=== PATIENT | male | born 1950 | race African-American/Black ===

== ENCOUNTER 2018-02-06 07:34 | Inpatient (IN) | payer MEDICARE, OTHER ==
[~2018-02-06] VITALS: Ht 193 cm; Wt 127.0 kg
[~2018-02-06 07:34] MED LIST: ASPI-1159 PO; ATOR40TA70 PO; ERGO500013 PO; FOLI-43 PO; GABA-533 PO; HYDR-4094 MT; HYDR25TA PO; IBUP-2030 PO; INSU3INS6 SUBCUT; METF-415 PO; METO-539 PO
[2018-02-06] MEDS ORDERED: SODIUM CHLORIDE 0.9% 1,000 ML IV ONE ×2 (08:50→10:00)
[2018-02-06 09:14] LABS: HEMATOCRIT. 30.5 % (42.0-52.0); HEMOGLOBIN. 9.7 g/dL (14.0-18.0); MEAN CORPUSCULAR HEMOGLOBIN 28.7 pg (28.0-32.0); MEAN CORPUSCULAR VOLUME 90.8 fL (80.0-94.0); PLATELET 302 x1000/uL (130-400); RED BLOOD CELL COUNT 3.36 mill/uL (4.7-6.1); RED CELL DISTRIBUTION WIDTH 12.8 % (11.6-14.6)
[2018-02-06 09:19] LABS: CHLORIDE 96 mEq/L (98-107)
[2018-02-06 09:21] LABS: INR 1.1; PROTHROMBIN TIME 10.9 sec (9.1-11.1)
[2018-02-06 09:35] LABS: PLATELET ESTIMATE NORMAL
[2018-02-06] MEDS ORDERED: METRONIDAZOLE 500 MG PREMIX 100 ML IV ONE (10:00)
[2018-02-06] MEDS ORDERED: LEVOFLOXACIN 750MG PREMIX 150 ML IV ONE (10:00)
[2018-02-06 11:56] LABS: CLARITY URINE CLEAR (CLEAR); COLOR URINE DARK YELLOW (YELLOW); KETONES URINE TRACE (NEGATIVE); LEUKOCYTE ESTERASE URINE TRACE (NEGATIVE); NITRITE URINE NEGATIVE (NEGATIVE); OCCULT BLOOD URINE NEGATIVE (NEGATIVE); PH URINE 5.5 (4.5-8.0); PROTEIN URINE 2+ (NEGATIVE); SPECIFIC GRAVITY URINE 1.022 (1.005-1.030)
[2018-02-06] MEDS ORDERED: VANCOMYCIN 1 G PREMIX 200 ML IV ONE (13:15)
[2018-02-06] MEDS ORDERED: INSULIN REGULAR (HUMULIN R) 300UNITS/3ML SUBCUT ONE (14:30)
[2018-02-06] MEDS ORDERED: CLONIDINE 0.1MG TABLET PO NR (20:45)
[2018-02-06] MEDS ORDERED: METOPROLOL TARTRATE 50MG TABLET PO NR (20:45)
[2018-02-06] MEDS ORDERED: METOPROLOL TARTRATE 50MG TABLET PO ONE (20:45)
[2018-02-06] MEDS ORDERED: MORPHINE SULFATE 2 MG/ML CPJ (NOT FOR IM USE) IV PRN ×2 (20:45)
[2018-02-06] MEDS ORDERED: CLONIDINE 0.1MG TABLET PO SCH (20:45)
[2018-02-06 22:00] VITALS: BP 133/60
[2018-02-06] MEDS: SODIUM CHLORIDE 0.9% 1,000 ML IV SCH (22:25)
[2018-02-06] MEDS ORDERED: CLONIDINE 0.1MG TABLET PO PRN (22:30)
[2018-02-06] MEDS ORDERED: METOPROLOL TARTRATE 50MG TABLET PO SCH (23:00)
[2018-02-07] VITALS (12 sets, daily range): BP systolic 125–148; BP diastolic 51–76
[2018-02-07] MEDS: METOPROLOL TARTRATE 50MG TABLET PO SCH ×2 (08:40→20:14)
[2018-02-07] MEDS: SODIUM CHLORIDE 0.9% 1,000 ML IV SCH ×2 (10:05→23:25)
[2018-02-07] MEDS ORDERED: DEXTROSE 50% WATER 50ML SYRINGE IV PRN (11:45)
[2018-02-07 11:52] LABS: HEMATOCRIT. 27.5 % (42.0-52.0); HEMOGLOBIN. 9.1 g/dL (14.0-18.0); MEAN CORPUSCULAR VOLUME 87.9 fL (80.0-94.0); MEAN PLATELET VOLUME 9.6 fl (7.4-10.4); PLATELET 281 x1000/uL (130-400); RED BLOOD CELL COUNT 3.13 mill/uL (4.7-6.1); RED CELL DISTRIBUTION WIDTH 12.9 % (11.6-14.6)
[2018-02-07] MEDS: BLOOD SUGAR DIAGNOSTIC STRIP TEST SCH ×3 (12:30→20:14)
[2018-02-07] MEDS ORDERED: KETOROLAC 30MG/ML VIAL IV NR (12:45)
[2018-02-07] MEDS: INSULIN LISPRO 100 UNITS/ML SUBCUT SCH ×3 (12:53→20:13)
[2018-02-07 12:55] LABS: PLATELET ESTIMATE NORMAL
[2018-02-07] MEDS: LEVOFLOXACIN 500MG PREMIX 100 ML IV SCH (13:10)
[2018-02-07] MEDS ORDERED: VANCOMYCIN 1500MG in DEXTROSE 5% WATER 250ML IV NR (14:30)
[2018-02-07] MEDS: METRONIDAZOLE 500 MG PREMIX 100 ML IV SCH (14:41)
[2018-02-07] MEDS: ENOXAPARIN 30MG/0.3ML SYR SUBCUT SCH (15:11)
[2018-02-07] MEDS: ZINC OXIDE 20% OINT 30GM TOP SCH (17:50)
[2018-02-08] VITALS (8 sets, daily range): BP systolic 134–157; BP diastolic 51–71
[2018-02-08] MEDS: ENOXAPARIN 30MG/0.3ML SYR SUBCUT SCH ×3 (00:18→21:16)
[2018-02-08] MEDS: METRONIDAZOLE 500 MG PREMIX 100 ML IV SCH ×4 (00:19→21:22)
[2018-02-08] MEDS: HYDROMORPHONE HCL/PF 2MG/ML CPJ IV PRN ×2 (04:25→15:37)
[2018-02-08] MEDS: VANCOMYCIN 1250MG in DEXTROSE 5% WATER 250ML IV SCH ×2 (05:45→23:22)
[2018-02-08 05:48] LABS: HEMATOCRIT. 26.5 % (42.0-52.0); HEMOGLOBIN. 8.8 g/dL (14.0-18.0); MEAN CORPUSCULAR HEMOGLOBIN 29.5 pg (28.0-32.0); MEAN CORPUSCULAR VOLUME 88.3 fL (80.0-94.0); MEAN PLATELET VOLUME 10.2 fl (7.4-10.4); PLATELET 291 x1000/uL (130-400)
[2018-02-08 06:34] LABS: CHLORIDE 99 mEq/L (98-107)
[2018-02-08 06:51] LABS: PHOSPHORUS 1.5 mg/dL (2.5-4.9)
[2018-02-08] MEDS: BLOOD SUGAR DIAGNOSTIC STRIP TEST SCH ×4 (07:56→21:16)
[2018-02-08] MEDS ORDERED: SODIUM HYPOCHLORITE 0.125% 473ML SOLUTION TOP SCH (09:00)
[2018-02-08] MEDS ORDERED: ENOXAPARIN 40MG/0.4ML SYR SUBCUT SCH (09:00)
[2018-02-08] MEDS: METOPROLOL TARTRATE 50MG TABLET PO SCH ×2 (09:29→21:16)
[2018-02-08] MEDS: INSULIN LISPRO 100 UNITS/ML SUBCUT SCH ×4 (09:30→21:23)
[2018-02-08] MEDS: ZINC OXIDE 20% OINT 30GM TOP SCH ×2 (09:31→17:00)
[2018-02-08] MEDS ORDERED: POTASSIUM CHLORIDE 20MEQ TABLET SR PO NR (10:00)
[2018-02-08] MEDS ORDERED: MORPHINE SULFATE 4 MG/ML CPJ (NOT FOR IM USE) IV STA (11:24)
[2018-02-08 12:31] LABS: PLATELET ESTIMATE NORMAL
[2018-02-08] MEDS: SODIUM CHLORIDE 0.9% 1,000 ML IV SCH (13:08)
[2018-02-08] MEDS: LEVOFLOXACIN 500MG PREMIX 100 ML IV SCH (13:08)
[2018-02-08] MEDS ORDERED: SODIUM PHOS,M-BASIC-D-BASIC 30 MM in SODIUM CHLORIDE 0.9% 500 ML IV SCH (14:15)
[2018-02-08] MEDS ORDERED: VANCOMYCIN 1250MG in DEXTROSE 5% WATER 250ML IV SCH (14:30)
[2018-02-09] MEDS: SODIUM CHLORIDE 0.9% 1,000 ML IV SCH ×2 (03:54→15:25)
[2018-02-09] MEDS: METRONIDAZOLE 500 MG PREMIX 100 ML IV SCH ×3 (03:54→22:45)
[2018-02-09] MEDS: BLOOD SUGAR DIAGNOSTIC STRIP TEST SCH ×4 (07:30→21:00)
[2018-02-09 07:45] LABS: HEMATOCRIT. 28.6 % (42.0-52.0); HEMOGLOBIN. 9.4 g/dL (14.0-18.0); MEAN CORPUSCULAR VOLUME 88.3 fL (80.0-94.0); MEAN PLATELET VOLUME 10.2 fl (7.4-10.4); PLATELET 320 x1000/uL (130-400); RED BLOOD CELL COUNT 3.24 mill/uL (4.7-6.1); RED CELL DISTRIBUTION WIDTH 12.9 % (11.6-14.6)
[2018-02-09 08:00] VITALS: BP 145/76
[2018-02-09 08:14] LABS: CHLORIDE 101 mEq/L (98-107)
[2018-02-09 08:33] LABS: PHOSPHORUS 2.2 mg/dL (2.5-4.9)
[2018-02-09 10:00] VITALS: BP 165/79
[2018-02-09] MEDS: ENOXAPARIN 30MG/0.3ML SYR SUBCUT SCH ×2 (10:35→22:38)
[2018-02-09] MEDS: METOPROLOL TARTRATE 50MG TABLET PO SCH ×2 (10:36→22:37)
[2018-02-09] MEDS: INSULIN LISPRO 100 UNITS/ML SUBCUT SCH ×4 (10:38→23:33)
[2018-02-09 11:03] LABS: PLATELET ESTIMATE NORMAL
[2018-02-09 12:00] VITALS: BP 150/70
[2018-02-09] MEDS: LEVOFLOXACIN 500MG PREMIX 100 ML IV SCH (13:36)
[2018-02-09] MEDS: ZINC OXIDE 20% OINT 30GM TOP SCH ×2 (14:57→16:48)
[2018-02-09 16:00] VITALS: BP 154/78
[2018-02-09] MEDS: VANCOMYCIN 2,000 MG in DEXT 5% WATER 500 ML IV SCH (18:33)
[2018-02-09] MEDS: HYDROMORPHONE HCL/PF 2MG/ML CPJ IV PRN (18:48)
[2018-02-09 20:30] VITALS: BP 159/63
[2018-02-09 22:00] VITALS: BP 145/75
[2018-02-10 04:24] VITALS: BP 144/68
[2018-02-10] MEDS: SODIUM CHLORIDE 0.9% 1,000 ML IV SCH ×2 (04:45→17:54)
[2018-02-10] MEDS: METRONIDAZOLE 500 MG PREMIX 100 ML IV SCH ×3 (05:11→20:30)
[2018-02-10 06:49] LABS: HEMATOCRIT. 30.1 % (42.0-52.0); MEAN CORPUSCULAR VOLUME 87.8 fL (80.0-94.0); MEAN PLATELET VOLUME 9.9 fl (7.4-10.4); PLATELET 333 x1000/uL (130-400); RED BLOOD CELL COUNT 3.43 mill/uL (4.7-6.1); RED CELL DISTRIBUTION WIDTH 13.1 % (11.6-14.6)
[2018-02-10 07:02] LABS: CHLORIDE 103 mEq/L (98-107)
[2018-02-10 08:00] VITALS: BP 150/80
[2018-02-10] MEDS: BLOOD SUGAR DIAGNOSTIC STRIP TEST SCH ×4 (08:00→20:38)
[2018-02-10] MEDS ORDERED: POTASSIUM CHLORIDE 20MEQ TABLET SR PO NR (08:30)
[2018-02-10 09:27] LABS: NUCLEATED RED BLOOD CELLS 1 /100 WBC; PLATELET ESTIMATE NORMAL
[2018-02-10] MEDS: ENOXAPARIN 30MG/0.3ML SYR SUBCUT SCH ×2 (09:35→20:24)
[2018-02-10] MEDS: METOPROLOL TARTRATE 50MG TABLET PO SCH ×2 (09:36→20:24)
[2018-02-10] MEDS: INSULIN LISPRO 100 UNITS/ML SUBCUT SCH ×4 (09:37→21:43)
[2018-02-10] MEDS: VANCOMYCIN 2,000 MG in DEXT 5% WATER 500 ML IV SCH (11:42)
[2018-02-10] MEDS: ZINC OXIDE 20% OINT 30GM TOP SCH ×2 (11:43→17:55)
[2018-02-10] MEDS: LEVOFLOXACIN 500MG PREMIX 100 ML IV SCH (11:50)
[2018-02-10 12:00] VITALS: BP 152/79
[2018-02-10] MEDS: HYDROMORPHONE HCL/PF 2MG/ML CPJ IV PRN (12:48)
[2018-02-10 16:00] VITALS: BP 130/62
[2018-02-10] MEDS: CEFTRIAXONE 2 G in DEXTROSE 5% WATER 50 ML IV SCH (17:52)
[2018-02-10] MEDS: LACTOBACILLUS GG CAPSULE PO SCH (17:53)
[2018-02-10 20:00] VITALS: BP 148/70
[2018-02-10 22:00] VITALS: BP 146/71
[2018-02-11] VITALS (8 sets, daily range): BP systolic 146–158; BP diastolic 72–82
[2018-02-11] MEDS: HYDROMORPHONE HCL/PF 2MG/ML CPJ IV PRN ×3 (01:46→22:00)
[2018-02-11] MEDS: METRONIDAZOLE 500 MG PREMIX 100 ML IV SCH ×3 (04:39→21:23)
[2018-02-11 07:29] LABS: HEMATOCRIT. 31.3 % (42.0-52.0); HEMOGLOBIN. 10.2 g/dL (14.0-18.0); MEAN CORPUSCULAR VOLUME 89.2 fL (80.0-94.0); MEAN PLATELET VOLUME 9.9 fl (7.4-10.4); PLATELET 366 x1000/uL (130-400); RED BLOOD CELL COUNT 3.51 mill/uL (4.7-6.1); RED CELL DISTRIBUTION WIDTH 13.1 % (11.6-14.6)
[2018-02-11] MEDS: BLOOD SUGAR DIAGNOSTIC STRIP TEST SCH ×3 (07:30→21:00)
[2018-02-11 07:49] LABS: CHLORIDE 101 mEq/L (98-107)
[2018-02-11 07:58] LABS: PHOSPHORUS 2.1 mg/dL (2.5-4.9)
[2018-02-11] MEDS: INSULIN LISPRO 100 UNITS/ML SUBCUT SCH ×4 (08:00→21:00)
[2018-02-11] MEDS: METOPROLOL TARTRATE 50MG TABLET PO SCH ×2 (09:00→21:25)
[2018-02-11 10:13] LABS: PLATELET ESTIMATE NORMAL
[2018-02-11] MEDS: ENOXAPARIN 30MG/0.3ML SYR SUBCUT SCH ×2 (10:17→21:25)
[2018-02-11] MEDS: LACTOBACILLUS GG CAPSULE PO SCH ×2 (10:21→17:00)
[2018-02-11] MEDS: SODIUM CHLORIDE 0.9% 1,000 ML IV SCH ×2 (10:26→21:23)
[2018-02-11] MEDS ORDERED: POTASSIUM PHOS,M-BASIC-D-BASIC 20 MMOL in DEXT 5% WATER 243.3333 ML IV NR (11:00)
[2018-02-11] MEDS ORDERED: MAGNESIUM 2 G PREMIX 50 ML IV NR (11:00)
[2018-02-11] MEDS: ZINC OXIDE 20% OINT 30GM TOP SCH ×2 (11:23→17:00)
[2018-02-11 17:08] LABS: HEMATOCRIT. 31.6 % (42.0-52.0); HEMOGLOBIN. 10.5 g/dL (14.0-18.0); MEAN CORPUSCULAR HEMOGLOBIN 29.2 pg (28.0-32.0); MEAN CORPUSCULAR VOLUME 88.4 fL (80.0-94.0); MEAN PLATELET VOLUME 9.5 fl (7.4-10.4); PLATELET 358 x1000/uL (130-400); RED BLOOD CELL COUNT 3.58 mill/uL (4.7-6.1); RED CELL DISTRIBUTION WIDTH 13.2 % (11.6-14.6)
[2018-02-11 17:11] LABS: CHLORIDE 99 mEq/L (98-107)
[2018-02-11 17:32] LABS: PLATELET ESTIMATE NORMAL
[2018-02-11] MEDS: CEFTRIAXONE 2 G in DEXTROSE 5% WATER 50 ML IV SCH (17:42)
[2018-02-12] VITALS: BP 146/67
[2018-02-12 04:00] VITALS: BP 138/74
[2018-02-12] MEDS: METRONIDAZOLE 500 MG PREMIX 100 ML IV SCH (05:53)
[2018-02-12] MEDS: BLOOD SUGAR DIAGNOSTIC STRIP TEST SCH ×2 (07:51→13:15)
[2018-02-12 08:00] VITALS: BP 154/71
[2018-02-12] MEDS: INSULIN LISPRO 100 UNITS/ML SUBCUT SCH ×2 (08:47→13:36)
[2018-02-12] MEDS ORDERED: POTASSIUM CHLORIDE 20MEQ TABLET SR PO NR (08:52)
[2018-02-12] MEDS: ZINC OXIDE 20% OINT 30GM TOP SCH (09:46)
[2018-02-12] MEDS: ENOXAPARIN 30MG/0.3ML SYR SUBCUT SCH (09:46)
[2018-02-12] MEDS: LACTOBACILLUS GG CAPSULE PO SCH (09:48)
[2018-02-12] MEDS: SODIUM CHLORIDE 0.9% 1,000 ML IV SCH (09:48)
[2018-02-12] MEDS: METOPROLOL TARTRATE 50MG TABLET PO SCH (09:48)
[2018-02-12] MEDS ORDERED: MAGNESIUM 4 G PREMIX 100 ML IV NR (10:30)
[2018-02-12 12:00] VITALS: BP 151/76
[2018-02-12 15:04] VITALS: BP 153/74
[2018-02-12 15:37] VITALS: BP 147/73
== END 2018-02-12 16:02 | DRG 853 ==
LOC: ER 07:34 → UNDOADMIN 17:44 → 5EST 17:44 → EDBEDREQSVC 17:47 → EDBEDREQTM 17:47 → EDBEDREQ 17:47 → ENRESERV 18:54
PROVIDERS: ADMIT Internal Medicine; ATTEND Internal Medicine
PROC: 0V950ZZ Drainage of Scrotum, Open Approach (ICD-10-PCS; 2018-02-08)
PROC: 02HV33Z Insertion of Infusion Device into Superior Vena Cava, Percutaneous Approach (ICD-10-PCS; principal; 2018-02-11)
PROC: B548ZZA Ultrasonography of Superior Vena Cava, Guidance (ICD-10-PCS; 2018-02-11)
DX: A41.9 Sepsis, unspecified organism (principal); N17.0 Acute kidney failure with tubular necrosis; E43 Unspecified severe protein-calorie malnutrition; N18.4 Chronic kidney disease, stage 4 (severe); L02.215 Cutaneous abscess of perineum; L02.214 Cutaneous abscess of groin; E87.0 Hyperosmolality and hypernatremia; I42.9 Cardiomyopathy, unspecified; E11.22 Type 2 diabetes mellitus with diabetic chronic kidney disease; I12.9 Hypertensive chronic kidney disease with stage 1 through stage 4 chronic kidney disease, or unspecified chronic kidney disease; E83.42 Hypomagnesemia; E11.42 Type 2 diabetes mellitus with diabetic polyneuropathy; I25.10 Atherosclerotic heart disease of native coronary artery without angina pectoris; J45.909 Unspecified asthma, uncomplicated; I13.10 Hypertensive heart and chronic kidney disease without heart failure, with stage 1 through stage 4 chronic kidney disease, or unspecified chronic kidney disease; E11.610 Type 2 diabetes mellitus with diabetic neuropathic arthropathy; B95.61 Methicillin susceptible Staphylococcus aureus infection as the cause of diseases classified elsewhere; F03.90 Unspecified dementia, unspecified severity, without behavioral disturbance, psychotic disturbance, mood disturbance, and anxiety; E87.6 Hypokalemia; N49.2 Inflammatory disorders of scrotum; E83.39 Other disorders of phosphorus metabolism; E78.5 Hyperlipidemia, unspecified; Z88.8 Allergy status to other drugs, medicaments and biological substances; Z90.49 Acquired absence of other specified parts of digestive tract; Z89.511 Acquired absence of right leg below knee; Z88.5 Allergy status to narcotic agent; Z79.899 Other long term (current) drug therapy; Z79.82 Long term (current) use of aspirin
CPT/HCPCS: 36415; 36569; 71045; 74176; 76770; 76870; 76937; 80048; 80202; 82962; 83036; 83605; 83735; 84100; 84134; 84484; 87070; 87077; 93005; 93970; 93976; 96361; 96365; 96366; 96367; 96368; 96372; 96375; 99285; A6261; C1725; C1769; J0696; J1170; J1650; J1815; J1885; J1956; J2270; J3370; J3475; J3490; J7030; J7040; J7050; J7060; A4315

== ENCOUNTER 2020-11-07 20:49 | Emergency (ER) | payer MEDICARE ==
[~2020-11-07] VITALS: Ht 188 cm; Wt 100.0 kg
[~2020-11-07 20:49] MED LIST changes: -ASPI-1159 PO; +ASPI-1497 PO; +SULF1TAB48 MT; +TAMS-11 PO
[2020-11-07 23:12] LABS: CLARITY URINE CLEAR (CLEAR); COLOR URINE YELLOW (YELLOW); KETONES URINE NEGATIVE (NEGATIVE); LEUKOCYTE ESTERASE URINE 2+ (NEGATIVE); NITRITE URINE NEGATIVE (NEGATIVE); OCCULT BLOOD URINE 2+ (NEGATIVE); PH URINE 6.5 (4.5-8.0); PROTEIN URINE 3+ (NEGATIVE); SPECIFIC GRAVITY URINE 1.013 (1.005-1.030)
[2020-11-08] MEDS ORDERED: NITR-87 MT (00:02)
[2020-11-08 00:36] VITALS: BP 134/59
== END 2020-11-08 01:15 | disposition home or self-care (01) ==
LOC: ER 20:49
DX: N39.0 Urinary tract infection, site not specified (principal); E11.9 Type 2 diabetes mellitus without complications; I10 Essential (primary) hypertension; Z98.890 Other specified postprocedural states; Z79.899 Other long term (current) drug therapy; Z88.5 Allergy status to narcotic agent
CPT/HCPCS: 51702; 81003; 99284

== ENCOUNTER 2021-01-10 15:24 | Emergency (ER) | payer MEDICARE ==
[~2021-01-10] VITALS: Ht 193 cm; Wt 79.0 kg
[~2021-01-10 15:24] MED LIST changes: +NITR-87 MT
[2021-01-10 15:32] VITALS: BP 147/84
[2021-01-10 17:25] LABS: CLARITY URINE CLOUDY (CLEAR); COLOR URINE YELLOW (YELLOW); KETONES URINE NEGATIVE (NEGATIVE); LEUKOCYTE ESTERASE URINE 2+ (NEGATIVE); NITRITE URINE NEGATIVE (NEGATIVE); OCCULT BLOOD URINE 2+ (NEGATIVE); PROTEIN URINE 4+ (NEGATIVE)
[2021-01-10] MEDS ORDERED: LEVO750T46 MT (18:02)
== END 2021-01-10 18:27 | disposition home or self-care (01) ==
LOC: ER 15:24
DX: Z46.6 Encounter for fitting and adjustment of urinary device (principal); E11.9 Type 2 diabetes mellitus without complications; I10 Essential (primary) hypertension; Z79.4 Long term (current) use of insulin; Z88.5 Allergy status to narcotic agent; Z88.6 Allergy status to analgesic agent; Z88.8 Allergy status to other drugs, medicaments and biological substances; Z89.9 Acquired absence of limb, unspecified; Z79.82 Long term (current) use of aspirin
CPT/HCPCS: 81003; 87077; 87186; 99283

== ENCOUNTER 2022-12-02 18:42 | Inpatient (IN) | payer OTHER, MEDICARE ==
[~2022-12-02] VITALS: Ht 193 cm; Wt 115.2 kg
[~2022-12-02 18:42] MED LIST changes: -GABA-533 PO; +GABA-534 PO; +LEVO750T68 MT; -NITR-87 MT
[2022-12-02 20:28] LABS: HEMATOCRIT. 35.9 % (42.0-52.0); HEMOGLOBIN. 11.5 g/dL (14.0-18.0); MEAN CORPUSCULAR HEMOGLOBIN 29.5 pg (28.0-32.0); MEAN CORPUSCULAR HGB CONC 32.1 g/dL (31.0-37.0); MEAN PLATELET VOLUME 9.5 fl (7.4-10.4); PLATELET 274 x1000/uL (130-400); RED BLOOD CELL COUNT 3.91 mill/uL (4.7-6.1); RED CELL DISTRIBUTION WIDTH 13.1 % (11.6-14.6)
[2022-12-02 20:29] LABS: DIFFERENTIAL COMMENT 1
[2022-12-02 20:32] LABS: CHLORIDE 110 mEq/L (98-107); INDEX HEMOLYSI 1 (1-3); INDEX ICTERIC 1 (1-4); INDEX LIPEMIC 1 (1-3); POTASSIUM 5.3 mEq/L (3.5-5.1); SODIUM 137 mEq/L (136-145)
[2022-12-02 20:42] LABS: ALANINE AMINOTRANSFERASE 18 IU/L (13-61); ALBUMIN 3.1 g/dL (3.4-5.0); ASPARTATE AMINOTRANSFERASE 22 IU/L (15-37); BILIRUBIN TOTAL 0.7 mg/dL (0.1-1.0); CALCIUM 9.2 mg/dL (8.5-10.1); CARBON DIOXIDE 23 mEq/L (21-32); CREATININE 1.4 mg/dL (0.6-1.3); GLUCOSE 82 mg/dL (70-105); PROTEIN TOTAL 7.4 g/dL (6.0-8.3); UREA NITROGEN BLOOD 15 mg/dL (7-21)
[2022-12-02 21:01] LABS: PLATELET ESTIMATE NORMAL
[2022-12-02] MEDS ORDERED: SODIUM POLYSTYRENE SULFONATE 15 G/60 ML BOT PO ONE (23:45)
[2022-12-02] MEDS ORDERED: CEFTRIAXONE 1GM PREMIX 50 ML IV ONE (23:45)
[2022-12-03] VITALS (10 sets, daily range): BP systolic 137–161; BP diastolic 64–80; PULSE 61–90; RESP 13–22; TEMP 98.2–98.9
[2022-12-03] MEDS ORDERED: CLONIDINE 0.1MG TABLET PO PRN (04:30)
[2022-12-03] MEDS ORDERED: ACETAMINOPHEN 325MG TABLET PO PRN ×2 (04:30)
[2022-12-03] MEDS ORDERED: IPRATROPIUM/ALBUTEROL 0.5-3(2.5)MG/3ML NEB NEB PRN (04:30)
[2022-12-03] MEDS ORDERED: MAGNESIUM/ALUMINUM HYDROXIDE/SIMETHICONE 30ML UDC PO PRN (04:30)
[2022-12-03] MEDS ORDERED: GUAIFENESIN 200MG/10ML SUGAR FREE UDC PO PRN (04:30)
[2022-12-03] MEDS ORDERED: DEXTROSE 50% WATER 50ML SYRINGE IV PRN (04:30)
[2022-12-03] MEDS ORDERED: ONDANSETRON HCL 4MG/2ML INJ IV PRN (04:30)
[2022-12-03] MEDS: BLOOD SUGAR DIAGNOSTIC STRIP TEST SCH ×4 (06:51→21:38)
[2022-12-03] MEDS: INSULIN LISPRO 100 UNITS/ML SUBCUT SCH ×4 (07:20→21:00)
[2022-12-03] MEDS ORDERED: CEFTRIAXONE 1GM PREMIX 50 ML IV SCH (07:30)
[2022-12-03 08:50] LABS: CLARITY URINE HAZY (CLEAR); COLOR URINE YELLOW (YELLOW); GLUCOSE URINE NEGATIVE (NEGATIVE); KETONES URINE NEGATIVE (NEGATIVE); NITRITE URINE NEGATIVE (NEGATIVE); OCCULT BLOOD URINE NEGATIVE (NEGATIVE); PH URINE 8.5 (4.5-8.0); PROTEIN URINE TRACE (NEGATIVE); UROBILINOGEN URINE 0.2 E.U./dL (0.2-1.0)
[2022-12-03 08:51] LABS: LEUKOCYTE ESTERASE URINE TRACE (NEGATIVE)
[2022-12-03 09:03] LABS: BASOPHILS % 0.3 % (0.0-2.0); EOSINOPHILS % 0.7 % (0.0-5.0); HEMATOCRIT. 32.4 % (42.0-52.0); HEMOGLOBIN. 10.3 g/dL (14.0-18.0); LYMPHOCYTES % 13.2 % (20.0-50.0); MEAN CORPUSCULAR HEMOGLOBIN 29.2 pg (28.0-32.0); MEAN CORPUSCULAR HGB CONC 31.8 g/dL (31.0-37.0); MEAN CORPUSCULAR VOLUME 91.7 fL (80.0-94.0); MEAN PLATELET VOLUME 9.8 fl (7.4-10.4); MONOCYTES % 7.9 % (2.0-8.0); NEUTROPHILS % 77.9 % (40.0-76.0); PLATELET 228 x1000/uL (130-400); RED BLOOD CELL COUNT 3.53 mill/uL (4.7-6.1); RED CELL DISTRIBUTION WIDTH 12.9 % (11.6-14.6)
[2022-12-03 09:25] LABS: SQUAMOUS EPITHELIAL CELL URINE RARE /lpf (RARE/1+); TRIPLE PHOSPHATE CRYSTAL URINE 3+ /lpf
[2022-12-03 09:26] LABS: RBC URINE 0-2 /hpf (0-2)
[2022-12-03 09:27] LABS: BACTERIA URINE 3+
[2022-12-03 10:56] LABS: CALCIUM 8.4 mg/dL (8.5-10.1); CHLORIDE 111 mEq/L (98-107); INDEX HEMOLYSI 1 (1-3); INDEX ICTERIC 1 (1-4); INDEX LIPEMIC 1 (1-3); POTASSIUM 4.4 mEq/L (3.5-5.1); SODIUM 140 mEq/L (136-145)
[2022-12-03 10:59] LABS: CARBON DIOXIDE 27 mEq/L (21-32); CREATININE 1.4 mg/dL (0.6-1.3); GLUCOSE 86 mg/dL (70-105); UREA NITROGEN BLOOD 15 mg/dL (7-21)
[2022-12-03] MEDS: APIXABAN 5 MG TABLET PO SCH ×2 (12:14→17:00)
[2022-12-03] MEDS: METOPROLOL TARTRATE 50MG TABLET PO SCH ×2 (12:15→21:38)
[2022-12-03] MEDS: AMLODIPINE 5MG TABLET PO SCH (17:00)
[2022-12-03] MEDS: ATORVASTATIN CALCIUM 40MG TABLET PO SCH (21:38)
[2022-12-03] MEDS: CEFTRIAXONE 1,000 MG in DEXTROSE 5% WATER 50 ML IV SCH (21:56)
[2022-12-03] MEDS ORDERED: CEFTRIAXONE 1,000 MG in DEXTROSE 5% WATER 50 ML IV SCH (23:00)
[2022-12-04] VITALS: BP 157/82; PULSE 75; RESP 22; TEMP 98.5
[2022-12-04 04:00] VITALS: BP 130/61; PULSE 67; RESP 18; TEMP 98.3
[2022-12-04] MEDS: PANTOPRAZOLE 40MG DR TABLET PO SCH (06:23)
[2022-12-04 06:24] LABS: BASOPHILS % 0.3 % (0.0-2.0); EOSINOPHILS % 2.9 % (0.0-5.0); HEMOGLOBIN. 9.8 g/dL (14.0-18.0); LYMPHOCYTES % 15.4 % (20.0-50.0); MEAN CORPUSCULAR HEMOGLOBIN 29.7 pg (28.0-32.0); MEAN CORPUSCULAR HGB CONC 32.8 g/dL (31.0-37.0); MEAN CORPUSCULAR VOLUME 90.6 fL (80.0-94.0); MEAN PLATELET VOLUME 9.3 fl (7.4-10.4); MONOCYTES % 8.5 % (2.0-8.0); NEUTROPHILS % 72.9 % (40.0-76.0); PLATELET 209 x1000/uL (130-400); RED BLOOD CELL COUNT 3.31 mill/uL (4.7-6.1); WHITE BLOOD COUNT 13.3 x1000/uL (4.5-11.0)
[2022-12-04] MEDS: BLOOD SUGAR DIAGNOSTIC STRIP TEST SCH ×4 (07:01→21:20)
[2022-12-04 07:03] LABS: CHLORIDE 109 mEq/L (98-107); INDEX HEMOLYSI 1 (1-3); INDEX ICTERIC 1 (1-4); INDEX LIPEMIC 1 (1-3); SODIUM 137 mEq/L (136-145)
[2022-12-04 07:10] LABS: CALCIUM 8.7 mg/dL (8.5-10.1); CARBON DIOXIDE 24 mEq/L (21-32); CREATININE 1.4 mg/dL (0.6-1.3); GLUCOSE 54 mg/dL (70-105); UREA NITROGEN BLOOD 17 mg/dL (7-21)
[2022-12-04] MEDS: INSULIN LISPRO 100 UNITS/ML SUBCUT SCH ×4 (07:20→21:20)
[2022-12-04 08:22] VITALS: BP 144/52; PULSE 82; RESP 17; TEMP 98.1
[2022-12-04] MEDS: APIXABAN 5 MG TABLET PO SCH ×2 (08:22→17:00)
[2022-12-04] MEDS: METOPROLOL TARTRATE 50MG TABLET PO SCH ×2 (08:24→21:21)
[2022-12-04] MEDS: AMLODIPINE 5MG TABLET PO SCH ×2 (08:24→17:31)
[2022-12-04 12:00] VITALS: BP 139/71; PULSE 76; RESP 20; TEMP 98.1
[2022-12-04 16:00] VITALS: BP 147/74; PULSE 86; RESP 20; TEMP 97.9
[2022-12-04 20:00] VITALS: BP 135/68; PULSE 73; RESP 16; TEMP 98.4
[2022-12-04] MEDS: CEFTRIAXONE 1,000 MG in DEXTROSE 5% WATER 50 ML IV SCH (21:20)
[2022-12-04] MEDS: ATORVASTATIN CALCIUM 40MG TABLET PO SCH (21:20)
[2022-12-05 00:14] VITALS: BP 155/73; PULSE 59; RESP 20; TEMP 98.2
[2022-12-05 04:22] VITALS: BP 134/68; PULSE 73; RESP 21; TEMP 98.4
[2022-12-05] MEDS: BLOOD SUGAR DIAGNOSTIC STRIP TEST SCH ×2 (06:52→11:40)
[2022-12-05] MEDS: PANTOPRAZOLE 40MG DR TABLET PO SCH (06:52)
[2022-12-05] MEDS: INSULIN LISPRO 100 UNITS/ML SUBCUT SCH ×2 (07:15→12:01)
[2022-12-05] MEDS: APIXABAN 5 MG TABLET PO SCH (07:53)
[2022-12-05] MEDS: METOPROLOL TARTRATE 50MG TABLET PO SCH (07:57)
[2022-12-05] MEDS: AMLODIPINE 5MG TABLET PO SCH (07:57)
[2022-12-05 08:00] VITALS: BP 125/72; PULSE 79; RESP 16; TEMP 99
[2022-12-05 09:35] VITALS: BP 125/72; PULSE 79; TEMP 99; O2SAT 96
[2022-12-05 12:00] VITALS: BP 135/80; PULSE 80; RESP 22; TEMP 98
== END 2022-12-05 13:45 | disposition home health service (06) | DRG 698 ==
LOC: ER 18:42 → EDBEDREQ 12-03 01:31 → MICUSO 12-03 01:37 → 3WST 12-03 02:33
PROVIDERS: ADMIT Internal Medicine; ATTEND Internal Medicine
DX: T83.510A Infection and inflammatory reaction due to cystostomy catheter, initial encounter (principal); A41.9 Sepsis, unspecified organism; I48.19 Other persistent atrial fibrillation; E11.649 Type 2 diabetes mellitus with hypoglycemia without coma; I10 Essential (primary) hypertension; N40.0 Benign prostatic hyperplasia without lower urinary tract symptoms; E87.5 Hyperkalemia; D64.9 Anemia, unspecified; E78.5 Hyperlipidemia, unspecified; Z79.4 Long term (current) use of insulin; Z79.82 Long term (current) use of aspirin; Z79.01 Long term (current) use of anticoagulants; Z89.519 Acquired absence of unspecified leg below knee; Y84.6 Urinary catheterization as the cause of abnormal reaction of the patient, or of later complication, without mention of misadventure at the time of the procedure; Y92.89 Other specified places as the place of occurrence of the external cause
CPT/HCPCS: 36415; 71045; 80048; 80053; 81003; 82962; 83036; 83605; 84145; 85025; 87804; 93005; 99285; J0696; J1815; J7060